=== PATIENT | female | born 1995 | race Caucasian/White ===

== ENCOUNTER 2022-09-14 09:08 | Day surgery (SDC) | payer BC ==
[2022-09-08 14:00] VITALS: BMI 38.0
[2022-09-14 09:50] LABS: BHCG - Serum Negative (NEGATIVE); Pregs Control Background? CLEAR/WHITE (CLR/WHITE); Pregs Control Bar Appear? YES (CONTROL BAR)
[2022-09-14] MEDS ORDERED: Fentanyl 100 MCG/2 ML VIAL ONE (10:47)
[2022-09-14] MEDS ORDERED: PROPOFOL 40 ML ONE (10:47)
== END 2022-09-14 11:41 | disposition home or self-care (01) ==
LOC: CSHSDC 09:08
PROVIDERS: ATTEND Surgery
PROC: 0DD68ZX Extraction of Stomach, Via Natural or Artificial Opening Endoscopic, Diagnostic (ICD-10-PCS; principal; 2022-09-14)
PROC: 0DD38ZX Extraction of Lower Esophagus, Via Natural or Artificial Opening Endoscopic, Diagnostic (ICD-10-PCS; principal; 2022-09-14)
DX: K21.00 Gastro-esophageal reflux disease with esophagitis, without bleeding (principal); K29.70 Gastritis, unspecified, without bleeding; K31.89 Other diseases of stomach and duodenum; K44.9 Diaphragmatic hernia without obstruction or gangrene; K59.00 Constipation, unspecified; K64.2 Third degree hemorrhoids; F41.9 Anxiety disorder, unspecified; F32.A Depression, unspecified; Z79.899 Other long term (current) drug therapy; E66.01 Morbid (severe) obesity due to excess calories; Z68.41 Body mass index [BMI] 40.0-44.9, adult; Z98.84 Bariatric surgery status
CPT/HCPCS: 36415; 84703; 88305; J2704; J3010